=== PATIENT | female | born 1990 | race Hispanic/Latino ===

== ENCOUNTER → 2017-11-28 | Day surgery (SDC) | payer OTHER ==
[2017-11-26 16:42] LABS: BASOPHILS % 0.3 % (0.0-1.0); EOSINOPHILS # (AUTO) 0.1 (0.0-0.4); EOSINOPHILS % 1.4 % (0.0-6.0); HEMATOCRIT 40.2 % (34.2-44.1); HEMOGLOBIN 13.6 g/dL (12.0-16.0); LYMPHOCYTES # (AUTO) 2.6 (1.0-3.2); MEAN CORPUSCULAR HGB CONC 33.8 g/dL (31-35); MEAN CORPUSCULAR VOLUME 82.7 fL (81-99); MONOCYTES # (AUTO) 0.4 (0.2-0.8); MONOCYTES % 6.9 % (4.4-11.3); NEUTROPHILS # (AUTO) 3.3 (2.1-6.9); NEUTROPHILS % 51.1 % (38.7-80.0); PLATELET COUNT 243 x10e3/uL (140-360); RED BLOOD COUNT 4.86 x10e6/uL (3.6-5.1); RED CELL DISTRIBUTION WIDTH 12.6 % (11.7-14.4)
--- NOTE | 2017-11-26 17:40 | Diagnostic Imaging Report ---
PROCEDURE: Frontal and lateral views of the chest. COMPARISON: None. INDICATIONS: PREOP CXR FINDINGS: Lines/tubes: None. Lungs: The lungs are well inflated and clear. There is no evidence of pneumonia or pulmonary edema. Pleura: There is no pleural effusion or pneumothorax. Heart and mediastinum: The heart and the mediastinum are normal. Bones: No acute bony abnormality. IMPRESSION: 1. No acute cardiopulmonary disease. Dictated by: Bill Pat M.D. on 11/26/2017 at 17:44 Electronically approved by: Bill Pat M.D. on 11/26/2017 at 17:44
[~2017-11-28] MED LIST: CLINDAMYCIN PHOS 900MG/ D5W 50 50 ML IV ONE; DEXAMETHASONE SOD PHOS INJ 4 MG/ML VIAL ONE; FENTANYL CITRATE/PF 100MCG/2 ML INJ ONE; LIDOCAINE 2%/ EPINEPHRINE 20ML MDV ONE; LIDOCAINE HCL 2% LOCAL INJ 5 ML SDV VIAL INJ ONE; MIDAZOLAM HCL 2 MG/2 ML VIAL ONE; MORPHINE SULFATE INJ 10 MG/ML ONE; ONDANSETRON HCL INJ 2 MG/ML VIAL ONE; PROPOFOL IV EMULSION 10 MG/ML 20 ML VIAL ONE; ROPIVACAINE 0.5% 5 MG/ML 30 ML SDV ONE; SEVOFLURANE INHAL SOLN 250 ML PEN BTL ONE
--- NOTE | 2017-11-29 08:53 | Operative Report ---
DATE OF PROCEDURE: November 28, 2017 PREOPERATIVE DIAGNOSES 1. Left knee anterior cruciate ligament tear. 2. Left knee medial meniscus tear. 3. Left knee lateral meniscus tear. POSTOPERATIVE DIAGNOSES 1. Left anterior cruciate ligament tear. 2. Left knee medial meniscus tear. 3. Left knee lateral meniscus tear. 4. 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 PROCEDURES 1. Left knee examination under anesthesia. 2. Left knee arthroscopy. 3. Left knee partial medial meniscectomy. 4. Left knee partial lateral meniscectomy. 5. Left knee chondroplasty of the medial femoral condyle, medial tibial plateau, lateral femoral condyle, lateral tibial plateau. 6. A 4-strand autograft anterior cruciate ligament reconstruction. [employer]AL[employer] SUPERVISOR: None. ANESTHESIA: General endotracheal intubation anesthesia. IV FLUIDS: Per anesthesia record. BRIEF DESCRIPTION OF THE PATIENT'S OPERATIVE PROCEDURE: Ms. Sanchez was taken to the operating room and placed in the supine position on the operating room table. Following induction of general anesthesia, as well as endotracheal intubation, the patient's left lower extremity was examined under anesthesia. She was found to have a mild effusion within the knee joint. She had a positive Paula's test and a positive anterior drawer test. The patient's lower extremity was prepped and draped in a standard surgical fashion. A 2-portal technique was used to provide this patient arthroscopic evaluation of the knee joint. Examination of the suprapatellar pouch, medial and lateral gutters found no evidence of loose bodies. There was no significant evidence of chondromalacia the patellar or trochlear surfaces. Scope was advanced in the medial compartment. Examination of the medial compartment demonstrated pitting and injury to the chondral surfaces of both the medial femoral condyle and medial tibial plateau. A chondroplasty of each surface was performed. Probing of the undersurface of the posterior horn of the medial meniscus demonstrated a large tibial tear. Attempts were made to repair this meniscus, but the tissue was found to be unstable. The repair attempt was unsatisfactory. Therefore, the repair device was removed, and a partial medial meniscectomy was performed. The scope was advanced into the intercondylar notch, and the anterior cruciate ligament was found to be torn. Scope was advanced in the lateral compartment. There was a tear of the posterior horn of the lateral meniscus, as well as a radial tear of the midportion of the lateral meniscus. Neither injury was deemed fixable, and partial lateral meniscectomies were performed. The knee was then deflated of its normal saline. Attention was turned to harvesting the patient's hamstring tendons for use of a graft. An incision was created along the medial border of the tibial tubercle. This incision was carried through skin only. Blunt dissection was used to deepen the incision. The insertion site for the hamstring tendon was easily identified. The hamstrings were elevated from the anteromedial aspect of the tibia taking care to preserve the medial collateral ligament. The gracilis and semitendinosus tendons were then harvested and fashioned into a 4-strand hamstring graft. These were prepared on the back table, tensioned and hydrated at this time. Attention was then returned to the knee. The shaver was placed in the knee. There was also chondral injuries to the lateral femoral condyle and lateral tibial plateau. Chondroplasties of each surface were performed at this time. The knee was then deflated of its sterile normal saline. Attention was then turned to harvesting the hamstring tendons. An incision was created medial to the tibial tubercle. This incision was carried through skin only. Blunt dissection used to deepen the incision to the level of the insertion site of the hamstring tendons to the medial proximal tibia. These were elevated from the tibia without difficulty taking care to protect the underlying medial collateral ligament. The gracilis and semitendinosus tendons were harvested and transferred to the back table. They were then prepared and formed into a 4-strand hamstring graft. The tendons were then tensioned and hydrated. Attention was returned to the knee. A shaver was placed in the knee joint, and the ACL stump was resected. A notchplasty was performed. The drill guide was placed in the knee and positioned appropriately in the ACL footprint. A guide pin was entered within the knee joint. The position of the pin was checked fluoroscopically and found to be appropriate. A 7 mm tibial tunnel was then drilled. A #6 over the top guide was then placed at the 2 o'clock position, and a 7 mm femoral tunnel was drilled. A dilator was used to dilate each tunnel. The graft was then passed through the knee, and the endo-button was deployed. The graft was then advanced into the femoral tunnel and seated. The knee was placed through a range of motion. The graft was tensioned. An 8 mm interference screw was then inserted into the tibial tunnel while that leg was held in slight flexion varus and with posterior directed force across the tibia. A probe was then placed in the joint and the graft was found to be tensioned well. The knee was placed through a range of motion. There was no impingement. Intraoperative examination of the stability of the knee found returned stability following graft placement. The knee was then deflated of its sterile normal saline. All wounds were copiously irrigated. They were closed in multilayer fashion. Sterile dressings were applied. The patient was also provided a [place] brace, awakened and taken to the postanesthesia care unit in stable condition. Job#: [id number] SEBASTIAN
== END | disposition home or self-care (01) ==
LOC: OR 08:57
PROVIDERS: ATTEND Specialist
DX: S83.222D Peripheral tear of medial meniscus, current injury, left knee, subsequent encounter (principal); S83.272D Complex tear of lateral meniscus, current injury, left knee, subsequent encounter; J45.909 Unspecified asthma, uncomplicated; Z88.0 Allergy status to penicillin
CPT/HCPCS: 29880; 29888; 36415; 71046; 81025; 85025; C2617; J1100; J2001 ×2; J2250; J2270; J2405; J2795